=== PATIENT | male | born 1995 | race Caucasian/White ===

== ENCOUNTER → 2016-04-25 | Outpatient (CLI) | payer OTHER | LOC: FIMAGING 18:52 | PROVIDERS: ATTEND Orthopaedic Surgery Sports Medicine | DX: S43.005A Unspecified dislocation of left shoulder joint, initial encounter (principal) ==

== ENCOUNTER 2016-08-03 19:49 | Emergency (ER) | payer OTHER ==
[2016-08-03] MEDS ORDERED: NS 1,000 ML IV ONE (20:04)
[2016-08-03] MEDS ORDERED: HYDROmorphONE/DILAUDID 1 MG/ML SYR IVP ONE (20:04)
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
[2016-08-03] MEDS ORDERED: ONDANSETRON 4 MG/2 ML VIAL ONE (20:18)
[2016-08-03] MEDS ORDERED: ONDANSETRON 4 MG/2 ML VIAL IVP ONE (20:20)
[2016-08-03] MEDS ORDERED: KETAMINE 100 MG/10 ML SYR ONE (20:23)
[2016-08-03] MEDS ORDERED: PROPOFOL 200 MG/20 ML VIAL ONE (20:23)
[2016-08-03] MEDS ORDERED: KETAMINE 100 MG/10 ML SYR IVP ONE (20:25)
[2016-08-03] MEDS ORDERED: IBUPROFEN 600 MG TAB PO ONE (21:11)
[2016-08-03 21:23] VITALS: BP 132/89; PULSE 58; RESP 16; TEMP 97.9; O2SAT 98
== END 2016-08-03 21:30 | disposition home or self-care (01) ==
PROC: 0RSLXZZ Reposition Right Elbow Joint, External Approach (ICD-10-PCS; principal; 2016-08-03)
DX: S53.104A Unspecified dislocation of right ulnohumeral joint, initial encounter (principal); J45.909 Unspecified asthma, uncomplicated; V18.2XXA Unspecified pedal cyclist injured in noncollision transport accident in nontraffic accident, initial encounter
CPT/HCPCS: 96374; A4565; J1170; J2405; J2704